=== PATIENT | female | born 1965 | race Caucasian/White ===

== ENCOUNTER 2017-07-01 10:31 | Emergency (ER) | payer SELFPAY ==
[~2017-07-01] VITALS: Ht 154.9 cm; Wt 63.6 kg
[2017-07-01] MEDS ORDERED: LEVO100 PO (10:39)
[2017-07-01] MEDS ORDERED: KETOROLAC TROMETHAMINE 60 MG/2 ML VIAL IM ONE (11:30)
[2017-07-01] MEDS ORDERED: METHOCARBAMOL 500 MG TABLET PO ONE (11:30)
[2017-07-01 11:45] VITALS: BP 171/77
== END 2017-07-01 11:53 | disposition home or self-care (01) ==
LOC: EMS 10:36
DX: S39.012A Strain of muscle, fascia and tendon of lower back, initial encounter (principal); E05.90 Thyrotoxicosis, unspecified without thyrotoxic crisis or storm; V49.9XXA Car occupant (driver) (passenger) injured in unspecified traffic accident, initial encounter; Y93.89 Activity, other specified; Y92.410 Unspecified street and highway as the place of occurrence of the external cause; Y99.8 Other external cause status
CPT/HCPCS: 96372; 99283; J1885